=== PATIENT | female | born 1975 | race African-American/Black ===

== ENCOUNTER 2016-10-12 17:43 | Emergency (ER) | payer OTHER ==
[~2016-10-12] VITALS: Ht 170.2 cm; Wt 91.0 kg
[~2016-10-12 17:43] MED LIST: ADVAIR 100/501 DISK IH; ALBUTEROL SULF8.5 GM IH
[2016-10-12 18:00] VITALS: BP 149/88
[2016-10-12 19:32] LABS: EOSINOPHIL (%) 1.5 % (0-5); EOSINOPHIL COUNT 0.1 K/uL (0-0.3); HEMATOCRIT 40.4 % (36.0-46.0); LYMPHOCYTE COUNT 1.5 K/uL (1.0-2.8); MCHC 34.4 G/DL (30.0-36.0); MCV 87.3 FL (83-99); MEAN PLAT.VOLUME 8.6 uM^3 (9.5-12.4); MONOCYTE (%) 9.7 % (3-12); MONOCYTE COUNT 0.5 K/uL (0-0.8); NEUTROPHIL (%) 60.2 % (45-76); NEUTROPHIL COUNT 3.1 K/uL (1.8-6.4); PLATELET COUNT 239 K/uL (156-360); RBC DIS.WIDTH-CV 13.6 % (11.8-14.6); RBC DIS.WIDTH-SD 42.7 % (39-53); RED BLOOD COUNT 4.63 M/uL (3.80-5.20); WHITE BLOOD COUNT 5.2 K/uL (4.1-10.2)
[2016-10-12 19:51] LABS: CHLORIDE 105 mEq/L (99-109); POTASSIUM 3.7 mEq/L (3.7-5.4); SODIUM 139 mEq/L (136-147)
[2016-10-12 19:53] LABS: GLUCOSE 88 mg/dL (70-99)
[2016-10-12 19:55] LABS: ANION GAP 10 MEQ/L (2-14); TOTAL BILIRUBIN 0.8 mg/dL (0.0-1.0)
[2016-10-12 19:56] LABS: SERUM ETHYL ALCOHOL < 10 mg/dL
[2016-10-12 19:57] LABS: ALKALINE PHOSPHATASE 53 IU/L (3-129); GFR ESTIMATE (CALCULATED) > 59 mL/min/
[2016-10-12 19:58] LABS: UREA NITROGEN (BUN) 11 mg/dL (9-23)
[2016-10-12 20:16] LABS: QUANTITATIVE HCG < 4.0 MIU/ML
== END 2016-10-12 20:42 | disposition left against medical advice (07) ==
LOC: EME 17:43
PROVIDERS: Emergency Medicine
DX: F22 Delusional disorders (principal); N93.9 Abnormal uterine and vaginal bleeding, unspecified; Z32.02 Encounter for pregnancy test, result negative; J45.909 Unspecified asthma, uncomplicated
CPT/HCPCS: 80053; 81003; 84702; 85025; 99281; 99284; G0480

== ENCOUNTER 2017-01-04 15:12 | Emergency (ER) | payer OTHER ==
[~2017-01-04] VITALS: Ht 162.6 cm; Wt 95.7 kg
[2017-01-04 17:09] VITALS: BP 132/74
== END 2017-01-04 17:10 | disposition home or self-care (01) ==
LOC: EME 15:12
DX: Z32.02 Encounter for pregnancy test, result negative (principal); Z59.0 Homelessness
CPT/HCPCS: 84702; 99281; 99283

== ENCOUNTER 2017-03-14 15:34 | Emergency (ER) | payer OTHER ==
[~2017-03-14] VITALS: Ht 165.1 cm; Wt 100.0 kg
[2017-03-14] MEDS ORDERED: PREDNISONE20 MG PO (16:08)
[2017-03-14] MEDS ORDERED: ZITHROMAX Z-PA250 MG PO (16:08)
[2017-03-14 17:17] LABS: ADD MIUA? YES; BILIRUBIN NEGATIVE; BLOOD LARGE; COLOR YELLOW ((YELLOW)); GLUCOSE (STRIP) NEGATIVE; KETONES NEGATIVE; LEUKOCYTES MODERATE; NITRITE NEGATIVE; PROTEIN (STRIP) NEGATIVE; SPECIFIC GRAVITY 1.008 (1.000-1.030); UROBILINOGEN 0.2 MG/DL (0.2-1.0)
[2017-03-14 17:29] LABS: HEMATOCRIT 44.8 % (36.0-46.0); MCH 30.3 PG (29.0-34.0); MCV 91.6 FL (83-99); MEAN PLAT.VOLUME 8.9 uM^3 (9.5-12.4); PLATELET COUNT 272 K/uL (156-360); RBC DIS.WIDTH-CV 13.1 % (11.8-14.6); RED BLOOD COUNT 4.89 M/uL (3.80-5.20); WHITE BLOOD COUNT 5.3 K/uL (4.1-10.2)
[2017-03-14 17:33] LABS: BACTERIA RARE /HPF; EPITHELIAL CELLS 1+ /HPF; MUCUS TRACE /LPF; UCUL ADDED? NO
[2017-03-14 17:40] LABS: CHLORIDE 102 mEq/L (99-109); POTASSIUM 3.9 mEq/L (3.7-5.4); SODIUM 140 mEq/L (136-147)
[2017-03-14 17:42] LABS: GLUCOSE 75 mg/dL (70-99)
[2017-03-14 17:43] LABS: ANION GAP 11 MEQ/L (2-14)
[2017-03-14 17:46] LABS: GFR ESTIMATE (CALCULATED) > 59 mL/min/
[2017-03-14 17:47] LABS: UREA NITROGEN (BUN) 15 mg/dL (9-23)
[2017-03-14 19:49] VITALS: BP 146/93
== END 2017-03-14 19:53 | disposition home or self-care (01) ==
LOC: EME 15:34
PROVIDERS: Physician Assistant
DX: O99.519 Diseases of the respiratory system complicating pregnancy, unspecified trimester (principal); J45.21 Mild intermittent asthma with (acute) exacerbation; J40 Bronchitis, not specified as acute or chronic; O09.519 Supervision of elderly primigravida, unspecified trimester; R60.0 Localized edema
CPT/HCPCS: 80048; 81003; 85027; 99281; 99283

== ENCOUNTER 2017-04-01 09:11 | Emergency (ER) | payer OTHER ==
[~2017-04-01] VITALS: Ht 165.1 cm; Wt 103.2 kg
[~2017-04-01 09:11] MED LIST changes: +PREDNISONE20 MG PO; +ZITHROMAX Z-PA250 MG PO
[2017-04-01] MEDS ORDERED: VENTOLIN HFA18 GM IH (10:51)
[2017-04-01 11:34] LABS: ADD MIUA? YES; BILIRUBIN NEGATIVE; BLOOD NEGATIVE; COLOR LT YELLOW ((YELLOW)); GLUCOSE (STRIP) NEGATIVE; KETONES NEGATIVE; LEUKOCYTES MODERATE; NITRITE NEGATIVE; PROTEIN (STRIP) NEGATIVE; SPECIFIC GRAVITY 1.011 (1.000-1.030); UROBILINOGEN 0.2 MG/DL (0.2-1.0)
[2017-04-01 11:36] LABS: BACTERIA NONE SEEN /HPF; EPITHELIAL CELLS RARE /HPF; MUCUS TRACE /LPF; RED BLOOD CELLS 0-5 /HPF (0-5); UCUL ADDED? NO; WHITE BLOOD CELLS 0-5 /HPF (0-5)
[2017-04-01 12:06] LABS: HEMATOCRIT 41.9 % (36.0-46.0); MCH 30.7 PG (29.0-34.0); MCHC 33.7 G/DL (30.0-36.0); MCV 91.3 FL (83-99); MEAN PLAT.VOLUME 8.6 uM^3 (9.5-12.4); PLATELET COUNT 260 K/uL (156-360); RBC DIS.WIDTH-CV 12.9 % (11.8-14.6); RBC DIS.WIDTH-SD 42.8 % (39-53); RED BLOOD COUNT 4.59 M/uL (3.80-5.20); WHITE BLOOD COUNT 8.6 K/uL (4.1-10.2)
[2017-04-01 12:18] LABS: CHLORIDE 104 mEq/L (99-109); POTASSIUM 4.4 mEq/L (3.7-5.4); SODIUM 139 mEq/L (136-147)
[2017-04-01 12:21] LABS: GLUCOSE 89 mg/dL (70-99)
[2017-04-01 12:22] LABS: ANION GAP 6 MEQ/L (2-14); TOTAL BILIRUBIN 0.5 mg/dL (0.0-1.0)
[2017-04-01 12:24] LABS: ALKALINE PHOSPHATASE 49 IU/L (3-129); GFR ESTIMATE (CALCULATED) > 59 mL/min/
[2017-04-01 12:25] LABS: UREA NITROGEN (BUN) 11 mg/dL (9-23)
[2017-04-01 12:34] LABS: QUANTITATIVE HCG < 4.0 MIU/ML
[2017-04-01 12:53] VITALS: BP 147/88
== END 2017-04-01 12:54 | disposition home or self-care (01) ==
LOC: EME 09:11
PROVIDERS: Nurse Practitioner Family
DX: R55 Syncope and collapse (principal); J45.909 Unspecified asthma, uncomplicated; Z59.0 Homelessness
CPT/HCPCS: 80053; 81003; 84702; 85027; 93005; 99281; 99284

== ENCOUNTER 2017-04-05 07:34 | Emergency (ER) | payer OTHER ==
[~2017-04-05] VITALS: Ht 165.1 cm; Wt 100.0 kg
[~2017-04-05 07:34] MED LIST changes: +VENTOLIN HFA18 GM IH
[2017-04-05 08:08] LABS: ADD MIUA? YES; BILIRUBIN NEGATIVE; BLOOD NEGATIVE; GLUCOSE (STRIP) NEGATIVE; KETONES NEGATIVE; LEUKOCYTES TRACE; NITRITE NEGATIVE; PROTEIN (STRIP) NEGATIVE; UROBILINOGEN 0.2 MG/DL (0.2-1.0)
[2017-04-05 08:10] LABS: COLOR LT YELLOW ((YELLOW))
[2017-04-05 08:23] LABS: BACTERIA 1+ /HPF; CALCIUM OXALATE CRYSTALS 1+ /HPF; EPITHELIAL CELLS 1+ /HPF; MUCUS TRACE /LPF; RED BLOOD CELLS 0-5 /HPF (0-5); UCUL ADDED? NO; WHITE BLOOD CELLS 0-5 /HPF (0-5)
[2017-04-05 09:12] LABS: EOSINOPHIL (%) 0 % (0-5); IMMATURE GRANULOCYTE (%) 0.4 % (0.0-0.7); INSTRUMENT ABS NEUTROPHIL CT 8.5 K/uL; LYMPHOCYTE COUNT 1.5 K/uL (1.0-2.8); MCH 30.5 PG (29.0-34.0); MCHC 33.7 G/DL (30.0-36.0); MCV 90.5 FL (83-99); MEAN PLAT.VOLUME 8.9 uM^3 (9.5-12.4); MONOCYTE (%) 6.3 % (3-12); MONOCYTE COUNT 0.7 K/uL (0-0.8); NEUTROPHIL COUNT 8.5 K/uL (1.8-6.4); PLATELET COUNT 253 K/uL (156-360); RBC DIS.WIDTH-CV 12.7 % (11.8-14.6); RBC DIS.WIDTH-SD 41.8 % (39-53); RED BLOOD COUNT 4.53 M/uL (3.80-5.20); WHITE BLOOD COUNT 10.7 K/uL (4.1-10.2)
[2017-04-05 09:44] LABS: ANION GAP 6 MEQ/L (2-14); CHLORIDE 106 MEQ/L (99-109); POTASSIUM 3.8 MEQ/L (3.7-5.4); SAMPLE HEMOLYSIS CHECK 0; SAMPLE ICTERIC CHECK 0; SAMPLE LIPEMIA CHECK 0; SODIUM 140 MEQ/L (136-147); TOTAL BILIRUBIN 0.5 MG/DL (0.0-1.0)
[2017-04-05 09:50] LABS: ALKALINE PHOSPHATASE 46 IU/L (3-129); GFR ESTIMATE (CALCULATED) > 59 mL/min/; GLUCOSE 126 mg/dL (70-99); UREA NITROGEN (BUN) 10 mg/dL (9-23)
[2017-04-05 09:56] LABS: QUANTITATIVE HCG < 4.0 MIU/ML
[2017-04-05 10:42] LABS: TROP-I INTERPRETATION NEGATIVE; TROPONIN-I < 0.01 ng/mL (0.0-0.30)
[2017-04-05 10:57] VITALS: BP 128/71
== END 2017-04-05 11:05 | disposition home or self-care (01) ==
LOC: EME 07:34
PROVIDERS: Physician Assistant
DX: R55 Syncope and collapse (principal); R42 Dizziness and giddiness; J45.909 Unspecified asthma, uncomplicated
CPT/HCPCS: 71020; 80053; 81003; 84484; 84702; 85025; 93005; 99281; 99284

== ENCOUNTER 2017-04-06 15:20 | Emergency (ER) | payer OTHER ==
[~2017-04-06] VITALS: Ht 165.1 cm; Wt 105.9 kg
[2017-04-06 18:22] VITALS: BP 120/70
== END 2017-04-06 18:23 | disposition home or self-care (01) ==
LOC: EME 15:20
DX: T78.40XA Allergy, unspecified, initial encounter (principal); F41.9 Anxiety disorder, unspecified; Z59.0 Homelessness
CPT/HCPCS: 99281; 99284

== ENCOUNTER 2017-04-07 08:53 | Emergency (ER) | payer OTHER ==
[~2017-04-07] VITALS: Ht 165.1 cm; Wt 104.7 kg
[2017-04-07 09:31] LABS: HEMATOCRIT 40.4 % (36.0-46.0); MCH 30.6 PG (29.0-34.0); MCHC 33.7 G/DL (30.0-36.0); MCV 90.8 FL (83-99); MEAN PLAT.VOLUME 9.1 uM^3 (9.5-12.4); PLATELET COUNT 274 K/uL (156-360); RBC DIS.WIDTH-SD 42.5 % (39-53); RED BLOOD COUNT 4.45 M/uL (3.80-5.20)
[2017-04-07 09:42] LABS: CHLORIDE 103 mEq/L (99-109); POTASSIUM 3.9 mEq/L (3.7-5.4); SODIUM 138 mEq/L (136-147)
[2017-04-07 09:45] LABS: ANION GAP 11 MEQ/L (2-14)
[2017-04-07 09:48] LABS: GFR ESTIMATE (CALCULATED) > 59 mL/min/
[2017-04-07 09:49] LABS: UREA NITROGEN (BUN) 13 mg/dL (9-23)
[2017-04-07 09:55] LABS: GLUCOSE 90 mg/dL (70-99)
[2017-04-07 09:58] LABS: QUANTITATIVE HCG < 4.0 MIU/ML
[2017-04-07 11:49] LABS: ADD MIUA? YES; BILIRUBIN NEGATIVE; BLOOD NEGATIVE; COLOR YELLOW ((YELLOW)); GLUCOSE (STRIP) NEGATIVE; KETONES NEGATIVE; LEUKOCYTES SMALL; NITRITE NEGATIVE; PROTEIN (STRIP) NEGATIVE; SPECIFIC GRAVITY 1.013 (1.000-1.030); UROBILINOGEN 0.2 MG/DL (0.2-1.0)
[2017-04-07 12:01] LABS: BACTERIA RARE /HPF; EPITHELIAL CELLS RARE /HPF; MUCUS TRACE /LPF; RED BLOOD CELLS 0-5 /HPF (0-5); UCUL ADDED? NO; WHITE BLOOD CELLS 0-5 /HPF (0-5)
[2017-04-07 15:49] VITALS: BP 150/79
== END 2017-04-07 15:50 | disposition home or self-care (01) ==
LOC: EME 08:53
DX: T67.5XXA Heat exhaustion, unspecified, initial encounter (principal); X30.XXXA Exposure to excessive natural heat, initial encounter; E86.0 Dehydration; R11.0 Nausea; J45.909 Unspecified asthma, uncomplicated
CPT/HCPCS: 80048; 81003; 84702; 85027; 99281; 99284; J2405; J7030

== ENCOUNTER 2017-04-10 05:35 | Emergency (ER) | payer OTHER ==
[~2017-04-10] VITALS: Ht 165.1 cm; Wt 105.0 kg
[2017-04-10 07:11] LABS: ADD MIUA? YES; BILIRUBIN NEGATIVE; BLOOD NEGATIVE; COLOR STRAW ((YELLOW)); GLUCOSE (STRIP) NEGATIVE; KETONES NEGATIVE; LEUKOCYTES MODERATE; NITRITE NEGATIVE; PROTEIN (STRIP) NEGATIVE; UROBILINOGEN 0.2 MG/DL (0.2-1.0)
[2017-04-10 07:13] LABS: BACTERIA RARE /HPF; EPITHELIAL CELLS RARE /HPF; MUCUS NONE SEEN /LPF; RED BLOOD CELLS 0-5 /HPF (0-5); UCUL ADDED? NO; WHITE BLOOD CELLS 0-5 /HPF (0-5)
[2017-04-10 07:27] LABS: AMPHETAMINE NEGATIVE (500 ng/mL); BARBITURATES NEGATIVE (200 ng/mL); BENZODIAZEPINES NEGATIVE (150 ng/mL); COCAINE NEGATIVE (150 ng/mL); METHADONE NEGATIVE (200 ng/mL); METHAMPHETAMINE NEGATIVE (500 ng/mL); OPIATES (MORPHINE) NEGATIVE (100 ng/mL); OXYCODONE NEGATIVE (100 ng/mL); PHENCYCLIDINE NEGATIVE (25 ng/mL); PROPOXYPHENE NEGATIVE (300 ng/mL); THC CANNABINOIDS NEGATIVE (50 ng/mL); TRICYCLIC ANTIDEPRESSANTS NEGATIVE (300 ng/mL)
[2017-04-10 07:28] LABS: INTERNAL CONTROLS VALID? YES
[2017-04-10 08:13] LABS: EOSINOPHIL (%) 4.1 % (0-5); EOSINOPHIL COUNT 0.3 K/uL (0-0.3); HEMATOCRIT 42.6 % (36.0-46.0); IMMATURE GRANULOCYTE (%) 0.7 % (0.0-0.7); IMMATURE GRANULOCYTE COUNT 0.1 K/uL; INSTRUMENT ABS NEUTROPHIL CT 4.4 K/uL; LYMPHOCYTE COUNT 1.8 K/uL (1.0-2.8); MCHC 32.9 G/DL (30.0-36.0); MCV 91.4 FL (83-99); MEAN PLAT.VOLUME 9.3 uM^3 (9.5-12.4); MONOCYTE (%) 9.9 % (3-12); MONOCYTE COUNT 0.7 K/uL (0-0.8); NEUTROPHIL (%) 60.5 % (45-76); NEUTROPHIL COUNT 4.4 K/uL (1.8-6.4); PLATELET COUNT 207 K/uL (156-360); RBC DIS.WIDTH-CV 13.2 % (11.8-14.6); RED BLOOD COUNT 4.66 M/uL (3.80-5.20); WHITE BLOOD COUNT 7.3 K/uL (4.1-10.2)
[2017-04-10 08:55] LABS: ALKALINE PHOSPHATASE 41 IU/L (3-129); ANION GAP 11 MEQ/L (2-14); CHLORIDE 106 MEQ/L (99-109); CREATINE KINASE 48 IU/L (1-294); GFR ESTIMATE (CALCULATED) > 59 mL/min/; GLUCOSE 83 mg/dL (70-99); POTASSIUM 4.2 MEQ/L (3.7-5.4); SAMPLE HEMOLYSIS CHECK 0; SAMPLE ICTERIC CHECK 0; SAMPLE LIPEMIA CHECK 0; SODIUM 141 MEQ/L (136-147); TOTAL BILIRUBIN 0.4 MG/DL (0.0-1.0); TOTAL CK 48 IU/L (1-294); UREA NITROGEN (BUN) 11 mg/dL (9-23)
[2017-04-10 08:57] LABS: CK-MB 1.5 ng/mL (0.0-4.9); QUANTITATIVE HCG < 4.0 MIU/ML
[2017-04-10 09:27] LABS: SERUM ETHYL ALCOHOL 11 mg/dL
[2017-04-10 09:29] LABS: SALICYLATE < 3.0 MG/DL (15-30)
[2017-04-10 09:47] VITALS: BP 128/88
== END 2017-04-10 10:01 | disposition home or self-care (01) ==
LOC: EME → EDBD 05:35 → EME 10:01
PROVIDERS: Emergency Medicine
DX: F29 Unspecified psychosis not due to a substance or known physiological condition (principal); Z04.8 Encounter for examination and observation for other specified reasons; J45.909 Unspecified asthma, uncomplicated
CPT/HCPCS: 70450; 71020; 80053; 81003; 82550; 82553; 84702; 85025; 87086; 90839; 93005; 99281; 99284; G0480

== ENCOUNTER 2017-04-12 16:20 | Emergency (ER) | payer OTHER ==
[~2017-04-12] VITALS: Ht 165.1 cm; Wt 103.8 kg
[2017-04-12 18:56] LABS: HEMATOCRIT 41.8 % (36.0-46.0); MCH 30.5 PG (29.0-34.0); MCHC 33.7 G/DL (30.0-36.0); MCV 90.5 FL (83-99); MEAN PLAT.VOLUME 9.1 uM^3 (9.5-12.4); PLATELET COUNT 191 K/uL (156-360); RBC DIS.WIDTH-CV 13.1 % (11.8-14.6); RBC DIS.WIDTH-SD 43.1 % (39-53); RED BLOOD COUNT 4.62 M/uL (3.80-5.20); WHITE BLOOD COUNT 6.6 K/uL (4.1-10.2)
[2017-04-12 19:04] LABS: CHLORIDE 105 mEq/L (99-109); POTASSIUM 3.6 mEq/L (3.7-5.4); SODIUM 137 mEq/L (136-147)
[2017-04-12 19:06] LABS: GLUCOSE 97 mg/dL (70-99)
[2017-04-12 19:07] LABS: ANION GAP 11 MEQ/L (2-14)
[2017-04-12 19:10] LABS: GFR ESTIMATE (CALCULATED) > 59 mL/min/
[2017-04-12 19:11] LABS: UREA NITROGEN (BUN) 9 mg/dL (9-23)
[2017-04-12] MEDS ORDERED: ZOFRAN ODT4 MG PO (19:29)
[2017-04-12 19:38] VITALS: BP 132/78
== END 2017-04-12 19:39 | disposition home or self-care (01) ==
LOC: RME 16:20 → EME 16:20 → RME 19:39
PROVIDERS: Physician Assistant Medical
DX: E86.0 Dehydration (principal); R11.0 Nausea; J45.909 Unspecified asthma, uncomplicated; Z59.0 Homelessness
CPT/HCPCS: 80048; 85027; 99281; 99284

== ENCOUNTER 2017-04-14 06:19 | Emergency (ER) | payer OTHER ==
[~2017-04-14] VITALS: Ht 165.1 cm; Wt 102.8 kg
[~2017-04-14 06:19] MED LIST changes: +ZOFRAN ODT4 MG PO
[2017-04-14 07:43] LABS: MCH 30.5 PG (29.0-34.0); MCHC 33.5 G/DL (30.0-36.0); MCV 91.1 FL (83-99); MEAN PLAT.VOLUME 9.1 uM^3 (9.5-12.4); PLATELET COUNT 183 K/uL (156-360); RBC DIS.WIDTH-SD 43.4 % (39-53); RED BLOOD COUNT 4.72 M/uL (3.80-5.20); WHITE BLOOD COUNT 6.3 K/uL (4.1-10.2)
[2017-04-14 08:12] LABS: ANION GAP 9 MEQ/L (2-14); CHLORIDE 105 MEQ/L (99-109); POTASSIUM 3.7 MEQ/L (3.7-5.4); SAMPLE HEMOLYSIS CHECK 1; SAMPLE ICTERIC CHECK 0; SAMPLE LIPEMIA CHECK 0; SODIUM 138 MEQ/L (136-147)
[2017-04-14 08:17] LABS: GFR ESTIMATE (CALCULATED) > 59 mL/min/; GLUCOSE 95 mg/dL (70-99); UREA NITROGEN (BUN) 11 mg/dL (9-23)
[2017-04-14 08:31] VITALS: BP 141/78
[2017-04-14 08:36] LABS: QUANTITATIVE HCG < 4.0 MIU/ML
== END 2017-04-14 08:34 | disposition home or self-care (01) ==
LOC: EME 06:19
PROVIDERS: Nurse Practitioner Family
DX: R68.83 Chills (without fever) (principal); R42 Dizziness and giddiness; J02.9 Acute pharyngitis, unspecified; J45.909 Unspecified asthma, uncomplicated; Z87.891 Personal history of nicotine dependence
CPT/HCPCS: 80048; 84702; 85027; 99281; 99284

== ENCOUNTER 2017-04-16 07:42 | Emergency (ER) | payer OTHER ==
[~2017-04-16] VITALS: Ht 170.2 cm; Wt 105.8 kg
[2017-04-16 12:47] LABS: EOSINOPHIL (%) 5.6 % (0-5); EOSINOPHIL COUNT 0.3 K/uL (0-0.3); HEMATOCRIT 44.5 % (36.0-46.0); IMMATURE GRANULOCYTE (%) 0.4 % (0.0-0.7); INSTRUMENT ABS NEUTROPHIL CT 2.8 K/uL; LYMPHOCYTE COUNT 1.6 K/uL (1.0-2.8); MCHC 32.8 G/DL (30.0-36.0); MCV 91.4 FL (83-99); MEAN PLAT.VOLUME 9.3 uM^3 (9.5-12.4); MONOCYTE (%) 7.9 % (3-12); MONOCYTE COUNT 0.4 K/uL (0-0.8); NEUTROPHIL (%) 54.4 % (45-76); NEUTROPHIL COUNT 2.8 K/uL (1.8-6.4); PLATELET COUNT 222 K/uL (156-360); RBC DIS.WIDTH-CV 12.9 % (11.8-14.6); RBC DIS.WIDTH-SD 43.1 % (39-53); RED BLOOD COUNT 4.87 M/uL (3.80-5.20); WHITE BLOOD COUNT 5.2 K/uL (4.1-10.2)
[2017-04-16 12:57] LABS: CHLORIDE 106 mEq/L (99-109); SODIUM 141 mEq/L (136-147)
[2017-04-16 12:59] LABS: GLUCOSE 78 mg/dL (70-99)
[2017-04-16 13:00] LABS: ANION GAP 14 MEQ/L (2-14)
[2017-04-16 13:03] LABS: GFR ESTIMATE (CALCULATED) > 59 mL/min/; UREA NITROGEN (BUN) 10 mg/dL (9-23)
[2017-04-16 13:55] VITALS: BP 158/91
== END 2017-04-16 14:00 | disposition home or self-care (01) ==
LOC: EME 07:42
PROVIDERS: Emergency Medicine
DX: R42 Dizziness and giddiness (principal); N93.9 Abnormal uterine and vaginal bleeding, unspecified; R25.2 Cramp and spasm; J45.909 Unspecified asthma, uncomplicated; F17.200 Nicotine dependence, unspecified, uncomplicated; Z59.0 Homelessness
CPT/HCPCS: 80048; 84702; 85025; 93005; 99281; 99284

== ENCOUNTER 2017-04-18 09:00 | Emergency (ER) | payer OTHER ==
[~2017-04-18] VITALS: Ht 165.1 cm; Wt 100.4 kg
[2017-04-18 10:13] LABS: MCH 30.1 PG (29.0-34.0); MCHC 33.6 G/DL (30.0-36.0); MCV 89.7 FL (83-99); PLATELET COUNT 227 K/uL (156-360); RBC DIS.WIDTH-CV 12.7 % (11.8-14.6); RBC DIS.WIDTH-SD 41.7 % (39-53); RED BLOOD COUNT 4.68 M/uL (3.80-5.20); WHITE BLOOD COUNT 4.6 K/uL (4.1-10.2)
[2017-04-18 10:21] LABS: CHLORIDE 107 mEq/L (99-109); POTASSIUM 3.7 mEq/L (3.7-5.4); SODIUM 142 mEq/L (136-147)
[2017-04-18 10:22] LABS: MAGNESIUM 2.4 mg/dL (1.3-2.7)
[2017-04-18 10:24] LABS: GLUCOSE 87 mg/dL (70-99)
[2017-04-18 10:25] LABS: ANION GAP 10 MEQ/L (2-14)
[2017-04-18 10:26] LABS: TOTAL BILIRUBIN 0.7 mg/dL (0.0-1.0)
[2017-04-18 10:27] LABS: ALKALINE PHOSPHATASE 57 IU/L (3-129); GFR ESTIMATE (CALCULATED) > 59 mL/min/
[2017-04-18 10:29] LABS: UREA NITROGEN (BUN) 11 mg/dL (9-23)
[2017-04-18 10:34] LABS: TROP-I INTERPRETATION NEGATIVE; TROPONIN-I < 0.01 ng/mL (0.0-0.30)
[2017-04-18 11:30] VITALS: BP 138/89
== END 2017-04-18 12:22 | disposition left against medical advice (07) ==
LOC: EME 09:00
PROVIDERS: Emergency Medicine
DX: E86.0 Dehydration (principal); J45.909 Unspecified asthma, uncomplicated; F41.9 Anxiety disorder, unspecified; E66.9 Obesity, unspecified; Z68.36 Body mass index [BMI] 36.0-36.9, adult
CPT/HCPCS: 80053; 83735; 84484; 85027; 93005; 99281; 99283

== ENCOUNTER 2017-05-19 09:03 | Emergency (ER) | payer OTHER ==
[~2017-05-19] VITALS: Ht 165.1 cm; Wt 101.7 kg
[2017-05-19] MEDS ORDERED: MOTRIN800 MG PO (10:08)
[2017-05-19 10:41] VITALS: BP 149/90
== END 2017-05-19 10:43 | disposition home or self-care (01) ==
LOC: EME 09:03
DX: R51 Headache (principal); J45.909 Unspecified asthma, uncomplicated
CPT/HCPCS: 99281; 99283

== ENCOUNTER 2017-05-22 12:22 | Emergency (ER) | payer OTHER ==
[~2017-05-22] VITALS: Ht 165.1 cm; Wt 100.9 kg
[~2017-05-22 12:22] MED LIST changes: +MOTRIN800 MG PO
[2017-05-22 13:23] LABS: EOSINOPHIL (%) 2.4 % (0-5); EOSINOPHIL COUNT 0.1 K/uL (0-0.3); HEMATOCRIT 40.8 % (36.0-46.0); IMMATURE GRANULOCYTE (%) 0.2 % (0.0-0.7); INSTRUMENT ABS NEUTROPHIL CT 3.7 K/uL; LYMPHOCYTE COUNT 1.4 K/uL (1.0-2.8); MCH 30.5 PG (29.0-34.0); MCHC 34.6 G/DL (30.0-36.0); MCV 88.3 FL (83-99); MONOCYTE (%) 9.7 % (3-12); MONOCYTE COUNT 0.6 K/uL (0-0.8); NEUTROPHIL (%) 63.9 % (45-76); NEUTROPHIL COUNT 3.7 K/uL (1.8-6.4); PLATELET COUNT 218 K/uL (156-360); RBC DIS.WIDTH-CV 12.1 % (11.8-14.6); RBC DIS.WIDTH-SD 39.1 % (39-53); RED BLOOD COUNT 4.62 M/uL (3.80-5.20); WHITE BLOOD COUNT 5.9 K/uL (4.1-10.2)
[2017-05-22 13:36] LABS: CHLORIDE 106 mEq/L (99-109); POTASSIUM 3.5 mEq/L (3.7-5.4); SODIUM 139 mEq/L (136-147)
[2017-05-22 13:37] LABS: GLUCOSE 111 mg/dL (70-99)
[2017-05-22 13:39] LABS: ANION GAP 6 MEQ/L (2-14)
[2017-05-22 13:41] LABS: GFR ESTIMATE (CALCULATED) > 59 mL/min/
[2017-05-22 13:42] LABS: UREA NITROGEN (BUN) 12 mg/dL (9-23)
[2017-05-22 16:21] LABS: AMPHETAMINE NEGATIVE (500 ng/mL); BARBITURATES NEGATIVE (200 ng/mL); BENZODIAZEPINES NEGATIVE (150 ng/mL); COCAINE NEGATIVE (150 ng/mL); INTERNAL CONTROLS VALID? YES; METHADONE NEGATIVE (200 ng/mL); METHAMPHETAMINE NEGATIVE (500 ng/mL); OPIATES (MORPHINE) NEGATIVE (100 ng/mL); OXYCODONE NEGATIVE (100 ng/mL); PHENCYCLIDINE NEGATIVE (25 ng/mL); PROPOXYPHENE NEGATIVE (300 ng/mL); THC CANNABINOIDS NEGATIVE (50 ng/mL); TRICYCLIC ANTIDEPRESSANTS NEGATIVE (300 ng/mL)
[2017-05-22 16:28] LABS: QUANTITATIVE HCG < 4.0 MIU/ML
[2017-05-22 17:12] VITALS: BP 132/81
== END 2017-05-22 17:17 | disposition home or self-care (01) ==
LOC: EME 12:22
PROVIDERS: Emergency Medicine
DX: R42 Dizziness and giddiness (principal); E86.0 Dehydration; J45.909 Unspecified asthma, uncomplicated; M19.90 Unspecified osteoarthritis, unspecified site; F41.9 Anxiety disorder, unspecified; G43.909 Migraine, unspecified, not intractable, without status migrainosus; Z59.0 Homelessness
CPT/HCPCS: 80048; 84702; 85025; 93005; 99281; 99284; J7030

== ENCOUNTER 2017-06-06 11:13 | Emergency (ER) | payer OTHER ==
[~2017-06-06] VITALS: Ht 165.1 cm; Wt 100.9 kg
[2017-06-06 14:12] LABS: HEMATOCRIT 45.5 % (36.0-46.0); MCHC 33.2 G/DL (30.0-36.0); MCV 90.3 FL (83-99); MEAN PLAT.VOLUME 8.9 uM^3 (9.5-12.4); RBC DIS.WIDTH-CV 12.2 % (11.8-14.6); RBC DIS.WIDTH-SD 40.7 % (39-53); RED BLOOD COUNT 5.04 M/uL (3.80-5.20); WHITE BLOOD COUNT 4.4 K/uL (4.1-10.2)
[2017-06-06 14:13] LABS: CHLORIDE 107 mEq/L (99-109); PLATELET COUNT 307 K/uL (156-360); POTASSIUM 3.7 mEq/L (3.7-5.4); SODIUM 139 mEq/L (136-147)
[2017-06-06 14:15] LABS: GLUCOSE 84 mg/dL (70-99)
[2017-06-06 14:16] LABS: ANION GAP 8 MEQ/L (2-14)
[2017-06-06 14:17] LABS: TOTAL BILIRUBIN 0.8 mg/dL (0.0-1.0)
[2017-06-06 14:19] LABS: ALKALINE PHOSPHATASE 54 IU/L (3-129); GFR ESTIMATE (CALCULATED) > 59 mL/min/
[2017-06-06 14:20] LABS: UREA NITROGEN (BUN) 8 mg/dL (9-23)
[2017-06-06 14:31] VITALS: BP 135/94
[2017-06-06] MEDS ORDERED: IBUPROFEN800 MG PO (14:45)
== END 2017-06-06 15:03 | disposition home or self-care (01) ==
LOC: EME 11:13
PROVIDERS: Nurse Practitioner Family
DX: R51 Headache (principal); R42 Dizziness and giddiness; S93.402A Sprain of unspecified ligament of left ankle, initial encounter; B35.3 Tinea pedis; X50.1XXA Overexertion from prolonged static or awkward postures, initial encounter; Z59.0 Homelessness; J45.909 Unspecified asthma, uncomplicated
CPT/HCPCS: 80053; 85027; 93005; 99281; 99284; J1885

== ENCOUNTER 2017-06-06 20:13 | Emergency (ER) | payer OTHER ==
[~2017-06-06] VITALS: Ht 165.1 cm; Wt 100.9 kg
[~2017-06-06 20:13] MED LIST changes: +IBUPROFEN800 MG PO
[2017-06-06 22:45] LABS: EOSINOPHIL COUNT 0.1 K/uL (0-0.3); HEMATOCRIT 41.8 % (36.0-46.0); IMMATURE GRANULOCYTE (%) 0.2 % (0.0-0.7); INSTRUMENT ABS NEUTROPHIL CT 2.7 K/uL; LYMPHOCYTE COUNT 1.5 K/uL (1.0-2.8); MCH 30.7 PG (29.0-34.0); MCHC 33.7 G/DL (30.0-36.0); MCV 91.1 FL (83-99); MEAN PLAT.VOLUME 8.9 uM^3 (9.5-12.4); MONOCYTE (%) 11.9 % (3-12); MONOCYTE COUNT 0.6 K/uL (0-0.8); NEUTROPHIL (%) 55.2 % (45-76); NEUTROPHIL COUNT 2.7 K/uL (1.8-6.4); PLATELET COUNT 293 K/uL (156-360); RBC DIS.WIDTH-CV 12.3 % (11.8-14.6); RED BLOOD COUNT 4.59 M/uL (3.80-5.20); WHITE BLOOD COUNT 4.9 K/uL (4.1-10.2)
[2017-06-06 22:57] LABS: CHLORIDE 103 mEq/L (99-109); POTASSIUM 3.7 mEq/L (3.7-5.4); SODIUM 139 mEq/L (136-147)
[2017-06-06 22:59] LABS: GLUCOSE 84 mg/dL (70-99)
[2017-06-06 23:00] LABS: ANION GAP 12 MEQ/L (2-14)
[2017-06-06 23:01] LABS: TOTAL BILIRUBIN 0.7 mg/dL (0.0-1.0)
[2017-06-06 23:02] LABS: ALKALINE PHOSPHATASE 51 IU/L (3-129); GFR ESTIMATE (CALCULATED) > 59 mL/min/
[2017-06-06 23:04] LABS: UREA NITROGEN (BUN) 13 mg/dL (9-23)
[2017-06-06 23:06] LABS: LIPASE 33 U/L (1.0-51.0); TROP-I INTERPRETATION NEGATIVE; TROPONIN-I < 0.01 ng/mL (0.0-0.30)
[2017-06-06 23:12] LABS: QUANTITATIVE HCG < 4.0 MIU/ML
[2017-06-06 23:40] VITALS: BP 134/87
== END 2017-06-06 23:41 | disposition left against medical advice (07) ==
LOC: EME 20:13
PROVIDERS: Emergency Medicine
DX: R42 Dizziness and giddiness (principal); R07.9 Chest pain, unspecified; Z53.20 Procedure and treatment not carried out because of patient's decision for unspecified reasons; J45.909 Unspecified asthma, uncomplicated; K59.00 Constipation, unspecified
CPT/HCPCS: 70450; 80053; 83690; 84484; 84702; 85025; 93005; 99281; 99284; J1200; J2765; J7030

== ENCOUNTER 2017-08-05 07:49 | Emergency (ER) | payer OTHER ==
[~2017-08-05] VITALS: Ht 165.1 cm; Wt 100.7 kg
[~2017-08-05 07:49] MED LIST changes: +ANTIVERT25 MG PO
[2017-08-05 08:50] LABS: EOSINOPHIL (%) 3.2 % (0-5); EOSINOPHIL COUNT 0.2 K/uL (0-0.3); HEMATOCRIT 38.4 % (36.0-46.0); IMMATURE GRANULOCYTE (%) 0.2 % (0.0-0.7); INSTRUMENT ABS NEUTROPHIL CT 3.2 K/uL; LYMPHOCYTE COUNT 1.5 K/uL (1.0-2.8); MCH 30.5 PG (29.0-34.0); MCHC 33.3 G/DL (30.0-36.0); MCV 91.4 FL (83-99); MEAN PLAT.VOLUME 8.8 uM^3 (9.5-12.4); MONOCYTE (%) 9.2 % (3-12); MONOCYTE COUNT 0.5 K/uL (0-0.8); NEUTROPHIL (%) 59.5 % (45-76); NEUTROPHIL COUNT 3.2 K/uL (1.8-6.4); PLATELET COUNT 264 K/uL (156-360); RBC DIS.WIDTH-SD 40.3 % (39-53); WHITE BLOOD COUNT 5.3 K/uL (4.1-10.2)
[2017-08-05 08:55] LABS: INTER. NORMALIZED RATIO 1.1; PROTHROMBIN TIME 12.2 SEC (10.2-12.9)
[2017-08-05 09:02] LABS: CHLORIDE 105 mEq/L (99-109); SODIUM 140 mEq/L (136-147)
[2017-08-05 09:04] LABS: GLUCOSE 87 mg/dL (70-99)
[2017-08-05 09:05] LABS: ANION GAP 7 MEQ/L (2-14)
[2017-08-05 09:08] LABS: GFR ESTIMATE (CALCULATED) > 59 mL/min/
[2017-08-05 09:09] LABS: UREA NITROGEN (BUN) 7 mg/dL (9-23)
[2017-08-05 09:11] LABS: LIPASE 44 U/L (1.0-51.0)
[2017-08-05] MEDS ORDERED: PROVENTIL HFA6.7 GM IH (10:01)
[2017-08-05] MEDS ORDERED: PREDNISONE50 MG PO (10:02)
[2017-08-05 10:27] VITALS: BP 142/98
== END 2017-08-05 10:28 | disposition home or self-care (01) ==
LOC: EME 07:49
PROVIDERS: Emergency Medicine
DX: J45.901 Unspecified asthma with (acute) exacerbation (principal); Z88.8 Allergy status to other drugs, medicaments and biological substances
CPT/HCPCS: 71020; 80048; 83690; 85025; 85610; 94640; 99281; 99284; J7512

== ENCOUNTER 2017-08-05 18:52 | Emergency (ER) | payer OTHER ==
[~2017-08-05] VITALS: Ht 165.1 cm; Wt 94.9 kg
[~2017-08-05 18:52] MED LIST changes: +PREDNISONE50 MG PO; +PROVENTIL HFA6.7 GM IH
[2017-08-05 20:07] LABS: HEMATOCRIT 39.9 % (36.0-46.0); MCH 29.9 PG (29.0-34.0); MCHC 33.1 G/DL (30.0-36.0); MCV 90.5 FL (83-99); MEAN PLAT.VOLUME 9.3 uM^3 (9.5-12.4); PLATELET COUNT 265 K/uL (156-360); RBC DIS.WIDTH-CV 11.8 % (11.8-14.6); RBC DIS.WIDTH-SD 39.3 % (39-53); RED BLOOD COUNT 4.41 M/uL (3.80-5.20); WHITE BLOOD COUNT 6.3 K/uL (4.1-10.2)
[2017-08-05 20:14] LABS: CHLORIDE 105 mEq/L (99-109); POTASSIUM 4.3 mEq/L (3.7-5.4); SODIUM 139 mEq/L (136-147)
[2017-08-05 20:18] LABS: ANION GAP 6 MEQ/L (2-14)
[2017-08-05 20:19] LABS: SERUM ETHYL ALCOHOL < 10 mg/dL
[2017-08-05 20:20] LABS: GFR ESTIMATE (CALCULATED) > 59 mL/min/
[2017-08-05 20:21] LABS: UREA NITROGEN (BUN) 8 mg/dL (9-23)
[2017-08-05 20:24] LABS: GLUCOSE 137 mg/dL (70-99)
[2017-08-05 20:29] LABS: QUANTITATIVE HCG < 4.0 MIU/ML
[2017-08-06 00:19] VITALS: BP 160/100
== END 2017-08-06 00:36 | disposition home or self-care (01) ==
LOC: EME 18:52
PROVIDERS: Emergency Medicine
DX: F20.9 Schizophrenia, unspecified (principal); F32.9 Major depressive disorder, single episode, unspecified; J45.909 Unspecified asthma, uncomplicated
CPT/HCPCS: 70450; 80048 91; 84702; 85027; 90837; 99281; 99285; G0480

== ENCOUNTER 2017-08-06 08:08 | Emergency (ER) | payer OTHER ==
[~2017-08-06] VITALS: Ht 165.1 cm; Wt 98.2 kg
[2017-08-06 08:40] VITALS: BP 152/90
== END 2017-08-06 08:48 | disposition home or self-care (01) ==
LOC: EME 08:08
DX: J45.909 Unspecified asthma, uncomplicated (principal); R06.00 Dyspnea, unspecified
CPT/HCPCS: 99281; 99284

== ENCOUNTER 2017-11-07 07:59 | Emergency (ER) | payer OTHER ==
[~2017-11-07] VITALS: Ht 167.6 cm; Wt 89.7 kg
[2017-11-07] MEDS ORDERED: PREDNISONE50 MG PO (10:10)
[2017-11-07 11:57] VITALS: BP 154/90
== END 2017-11-07 11:59 | disposition home or self-care (01) ==
LOC: EME 07:59
DX: T78.40XA Allergy, unspecified, initial encounter (principal); J45.909 Unspecified asthma, uncomplicated; F41.9 Anxiety disorder, unspecified; Z87.891 Personal history of nicotine dependence
CPT/HCPCS: 99281; 99284; J7512

== ENCOUNTER 2018-04-19 16:26 | Emergency (ER) | payer OTHER ==
[~2018-04-19] VITALS: Ht 165.1 cm; Wt 93.3 kg
[2018-04-19 17:38] LABS: HEMATOCRIT 39.7 % (36.0-46.0); MCH 31.7 PG (29.0-34.0); MCHC 35.3 G/DL (30.0-36.0); MCV 89.8 FL (83-99); PLATELET COUNT 293 K/uL (156-360); RBC DIS.WIDTH-CV 12.4 % (11.8-14.6); RBC DIS.WIDTH-SD 40.7 % (39-53); RED BLOOD COUNT 4.42 M/uL (3.80-5.20); WHITE BLOOD COUNT 7.2 K/uL (4.1-10.2)
[2018-04-19 17:47] LABS: CHLORIDE 105 mEq/L (99-109)
[2018-04-19 17:48] LABS: POTASSIUM 3.4 mEq/L (3.7-5.4); SODIUM 139 mEq/L (136-147)
[2018-04-19 17:49] LABS: GLUCOSE 82 mg/dL (70-99)
[2018-04-19 17:53] LABS: GFR ESTIMATE (CALCULATED) > 59 mL/min/
[2018-04-19 17:54] LABS: UREA NITROGEN (BUN) 16 mg/dL (9-23)
[2018-04-19 18:15] LABS: QUANTITATIVE HCG < 4.0 MIU/ML
[2018-04-19 19:04] LABS: APPEARANCE CLOUDY ((CLEAR)); BILIRUBIN NEGATIVE; BLOOD SMALL; COLOR YELLOW ((YELLOW)); GLUCOSE (STRIP) NEGATIVE; KETONES NEGATIVE; LEUKOCYTES LARGE; NITRITE NEGATIVE; PROTEIN (STRIP) NEGATIVE; SPECIFIC GRAVITY 1.027 (1.000-1.030); UROBILINOGEN 0.2 MG/DL (0.2-1.0)
[2018-04-19 19:04] LABS: ALBUMIN 4.3 g/dL (3.2-4.8)
[2018-04-19 19:07] LABS: TOTAL PROTEIN 7.2 g/dL (6.4-8.3)
[2018-04-19 19:09] LABS: BACTERIA RARE /HPF; EPITHELIAL CELLS 2+ /HPF; MUCUS TRACE /LPF; RED BLOOD CELLS 0-5 /HPF (0-5); UCUL ADDED? YES
[2018-04-19 19:09] LABS: TOTAL BILIRUBIN 0.6 mg/dL (0.0-1.0)
[2018-04-19 19:10] LABS: ALKALINE PHOSPHATASE 68 IU/L (3-129)
[2018-04-19 19:12] LABS: AST (GOT) 19 IU/L (2-34); DIRECT BILIRUBIN 0.2 mg/dL (0.0-0.3)
[2018-04-19 19:13] LABS: ALT (GPT) 20 IU/L (3-49); LIPASE 41 U/L (1.0-51.0)
[2018-04-19] MEDS ORDERED: BENTYL20 MG PO (19:38)
[2018-04-19] MEDS ORDERED: ZOFRAN ODT8 MG PO (19:38)
[2018-04-19 19:58] VITALS: BP 131/87
== END 2018-04-19 20:00 | disposition home or self-care (01) ==
LOC: EME 16:26
DX: R11.2 Nausea with vomiting, unspecified (principal); E86.0 Dehydration; R10.817 Generalized abdominal tenderness; J45.909 Unspecified asthma, uncomplicated; Z87.891 Personal history of nicotine dependence
CPT/HCPCS: 80048; 80076; 81003; 83690; 84702; 85027; 87086; 99281; 99284